=== PATIENT | female | born 1950 | race African-American/Black ===

== ENCOUNTER 2019-03-29 16:16 | Emergency (ER) | payer MEDICARE ==
[~2019-03-29] VITALS: Ht 160 cm; Wt 140.0 kg
[~2019-03-29 16:16] MED LIST: ATOR10TA MT; METO-539 MT
[2019-03-29] MEDS ORDERED: SODIUM CHLORIDE 0.9% 1,000 ML IV ONE (17:00)
[2019-03-29 17:58] LABS: BASOPHILS % 0.8 % (0.0-2.0); EOSINOPHILS % 0.8 % (0.0-5.0); HEMATOCRIT. 44.8 % (36.0-48.0); HEMOGLOBIN. 15.1 g/dL (12.0-16.0); LYMPHOCYTES % 21.3 % (20.0-50.0); MEAN CORPUSCULAR HEMOGLOBIN 28.3 pg (28.0-32.0); MEAN CORPUSCULAR VOLUME 84.3 fL (81.0-99.0); MEAN PLATELET VOLUME 7.9 fl (7.4-10.4); MONOCYTES % 6.9 % (2.0-8.0); NEUTROPHILS % 70.2 % (40.0-76.0); PLATELET 440 x1000/uL (130-400); RED BLOOD CELL COUNT 5.31 mill/uL (4.2-5.4)
[2019-03-29 18:00] LABS: CHLORIDE 113 mEq/L (98-107)
[2019-03-29 18:03] LABS: INR 0.9; PARTIAL THROMBOPLASTIN TIME 26.3 sec (23.4-31.0); PROTHROMBIN TIME 9.5 sec (9.6-11.0)
[2019-03-29 19:51] LABS: CLARITY URINE CLEAR (CLEAR); COLOR URINE PALE YELLOW (YELLOW); SPECIFIC GRAVITY URINE 1.007 (1.005-1.030)
[2019-03-29 19:52] LABS: KETONES URINE NEGATIVE (NEGATIVE); LEUKOCYTE ESTERASE URINE NEGATIVE (NEGATIVE); NITRITE URINE NEGATIVE (NEGATIVE); OCCULT BLOOD URINE NEGATIVE (NEGATIVE); PH URINE 5.5 (4.5-8.0); PROTEIN URINE NEGATIVE (NEGATIVE); UROBILINOGEN URINE 0.2 E.U./dL (0.2-1.0)
[2019-03-29] MEDS ORDERED: ASPIRIN 325MG EC TABLET PO ONE (20:00)
[2019-03-30 01:00] VITALS: BP 131/62
== END 2019-03-30 01:25 | disposition short-term general hospital (02) ==
LOC: ER 16:16
DX: R41.82 Altered mental status, unspecified (principal); R60.0 Localized edema; E78.00 Pure hypercholesterolemia, unspecified; I12.9 Hypertensive chronic kidney disease with stage 1 through stage 4 chronic kidney disease, or unspecified chronic kidney disease; N18.9 Chronic kidney disease, unspecified; Z86.73 Personal history of transient ischemic attack (TIA), and cerebral infarction without residual deficits; Z79.899 Other long term (current) drug therapy
CPT/HCPCS: 36415; 70450; 71045; 80053; 81003; 82962; 83880; 84484; 85025; 85610; 85730; 87086; 93005; 96360; 99285; J7030

== ENCOUNTER 2022-04-21 19:25 | Inpatient (IN) | payer OTHER, MEDICAID ==
[~2022-04-21] VITALS: Ht 162.6 cm; Wt 59.4 kg
[~2022-04-21 19:25] MED LIST changes: +ALBU90AE INH; +ASPI-1497 MT; -ATOR10TA MT; +CLOP-31 MT; +LEVE1000 MT; +LIP40 MT
[2022-04-21 20:45] LABS: BASOPHILS % 0.4 % (0.0-2.0); EOSINOPHILS % 0.1 % (0.0-5.0); HEMATOCRIT. 48.9 % (36.0-48.0); HEMOGLOBIN. 16.2 g/dL (12.0-16.0); LYMPHOCYTES % 12.1 % (20.0-50.0); MEAN CORPUSCULAR HEMOGLOBIN 27.6 pg (28.0-32.0); MEAN CORPUSCULAR VOLUME 83.1 fL (81.0-99.0); MEAN PLATELET VOLUME 7.9 fl (7.4-10.4); MONOCYTES % 4.9 % (2.0-8.0); NEUTROPHILS % 82.5 % (40.0-76.0); PLATELET 342 x1000/uL (130-400); RED BLOOD CELL COUNT 5.88 mill/uL (4.2-5.4); RED CELL DISTRIBUTION WIDTH 16.3 % (11.6-14.6)
[2022-04-21] MEDS ORDERED: MIDAZOLAM HCL 2 MG/2 ML VIAL IV NR (20:45)
[2022-04-21 20:52] LABS: CHLORIDE 107 mEq/L (98-107)
[2022-04-21 21:01] LABS: ETHANOL BLOOD < 10 mg/dL
[2022-04-21] MEDS ORDERED: MIDAZOLAM HCL 2 MG/2 ML VIAL IV ONE (21:30)
[2022-04-21] MEDS ORDERED: IOHEXOL-350 100 ML BOTTLE ONE (23:02)
[2022-04-21 23:23] LABS: CLARITY URINE CLEAR (CLEAR); COLOR URINE YELLOW (YELLOW); KETONES URINE TRACE (NEGATIVE); LEUKOCYTE ESTERASE URINE 2+ (NEGATIVE); NITRITE URINE POSITIVE (NEGATIVE); OCCULT BLOOD URINE 1+ (NEGATIVE); PROTEIN URINE 1+ (NEGATIVE); SPECIFIC GRAVITY URINE 1.053 (1.005-1.030); UROBILINOGEN URINE 0.2 E.U./dL (0.2-1.0)
[2022-04-21 23:40] LABS: *AMPHETAMINES SCREEN URINE NEGATIVE (NEGATIVE); *BARBITURATES SCREEN URINE NEGATIVE (NEGATIVE); *BENZODIAZEPINES SCREEN URINE PRESUMTIVE POSITIVE (NEGATIVE); *COCAINE SCREEN URINE NEGATIVE (NEGATIVE); CANNABINOID URINE SCREEN PRESUMTIVE POSITIVE (NEGATIVE); METHADONE URINE SCREEN NEGATIVE (NEGATIVE); OPIATES URINE SCREEN NEGATIVE (NEGATIVE); PHENCYCLIDINE URINE SCREEN NEGATIVE (NEGATIVE)
[2022-04-22] MEDS: CLONIDINE 0.1MG TABLET PO PRN (05:25)
[2022-04-22] MEDS ORDERED: DIPHENHYDRAMINE 50MG/ML VIAL IV PRN (09:45)
[2022-04-22] MEDS ORDERED: ONDANSETRON HCL 4MG/2ML INJ IV PRN (09:45)
[2022-04-22] MEDS ORDERED: IPRATROPIUM/ALBUTEROL 0.5-3(2.5)MG/3ML NEB HHN PRN (09:45)
[2022-04-22] MEDS ORDERED: ACETAMINOPHEN 325MG TABLET PO PRN (09:45)
[2022-04-22] MEDS: ENOXAPARIN 30MG/0.3ML SYR SUBCUT SCH (10:09)
[2022-04-22] MEDS: HYDRALAZINE 20MG/ML VIAL IV PRN (10:10)
[2022-04-22] MEDS ORDERED: MIDAZOLAM HCL 2 MG/2 ML VIAL IV NR (10:45)
[2022-04-22 12:30] VITALS: BP 142/80
[2022-04-22] MEDS ORDERED: CEFTRIAXONE 1,000 MG in DEXTROSE 5% WATER 50 ML IV SCH (15:00)
[2022-04-22 16:00] VITALS: BP 160/97
[2022-04-22] MEDS ORDERED: ALLO100T MT (16:49)
[2022-04-22] MEDS ORDERED: SODI650T PO (16:49)
[2022-04-22] MEDS ORDERED: COLC0.6C3 MT (16:49)
[2022-04-22] MEDS ORDERED: CALC0.253 MT (16:49)
[2022-04-22] MEDS ORDERED: LISI2.5T47 MT (16:49)
[2022-04-22] MEDS ORDERED: METO25TA6 MT (16:49)
[2022-04-22 20:00] VITALS: BP 159/95
[2022-04-23] VITALS: BP 148/90
[2022-04-23 04:00] VITALS: BP 127/89
[2022-04-23] MEDS: LEVETIRACETAM 500MG TABLET PO SCH ×3 (04:37→21:48)
[2022-04-23 08:00] VITALS: BP 179/99
[2022-04-23] MEDS ORDERED: DEXTROSE 50% WATER 50ML SYRINGE IV PRN (08:30)
[2022-04-23] MEDS ORDERED: LISINOPRIL 5MG TABLET PO SCH (09:00)
[2022-04-23] MEDS: ATORVASTATIN CALCIUM 40MG TABLET PO SCH (10:09)
[2022-04-23] MEDS: ASPIRIN 81MG EC TABLET PO SCH (10:09)
[2022-04-23] MEDS: CLOPIDOGREL 75MG TABLET PO SCH (10:09)
[2022-04-23] MEDS: COLCHICINE 0.6MG TABLET PO SCH (10:09)
[2022-04-23] MEDS: ALLOPURINOL 100 MG TABLET PO SCH (10:09)
[2022-04-23] MEDS: CALCITRIOL 0.25MCG CAPSULE PO SCH (10:09)
[2022-04-23] MEDS: ENOXAPARIN 30MG/0.3ML SYR SUBCUT SCH (10:10)
[2022-04-23] MEDS: DEXT 5%/0.45% NACL 1000ML 1,000 ML IV SCH (11:31)
[2022-04-23] MEDS: BLOOD SUGAR DIAGNOSTIC STRIP TEST SCH ×3 (11:40→21:46)
[2022-04-23] MEDS: INSULIN LISPRO 100 UNITS/ML SUBCUT SCH ×3 (12:10→21:00)
[2022-04-23 16:00] VITALS: BP 158/100
[2022-04-23] MEDS: CLONIDINE 0.1MG TABLET PO PRN (17:00)
[2022-04-23 20:00] VITALS: BP 121/98
[2022-04-24] VITALS (7 sets, daily range): BP systolic 133–173; BP diastolic 80–97
[2022-04-24] MEDS: DEXT 5%/0.45% NACL 1000ML 1,000 ML IV SCH ×2 (02:31→18:39)
[2022-04-24] MEDS: HYDRALAZINE 20MG/ML VIAL IV PRN (05:44)
[2022-04-24] MEDS: BLOOD SUGAR DIAGNOSTIC STRIP TEST SCH ×4 (06:40→21:54)
[2022-04-24 07:10] LABS: HEMATOCRIT. 47.9 % (36.0-48.0); HEMOGLOBIN. 15.4 g/dL (12.0-16.0); MEAN CORPUSCULAR HEMOGLOBIN 27.6 pg (28.0-32.0); MEAN CORPUSCULAR VOLUME 85.9 fL (81.0-99.0); MEAN PLATELET VOLUME 7.7 fl (7.4-10.4); PLATELET 225 x1000/uL (130-400); RED BLOOD CELL COUNT 5.57 mill/uL (4.2-5.4); RED CELL DISTRIBUTION WIDTH 16.8 % (11.6-14.6)
[2022-04-24] MEDS: INSULIN LISPRO 100 UNITS/ML SUBCUT SCH ×4 (07:10→21:00)
[2022-04-24 09:05] LABS: PHOSPHORUS 1.9 mg/dL (2.5-4.9)
[2022-04-24] MEDS: ASPIRIN 81MG EC TABLET PO SCH (09:43)
[2022-04-24] MEDS: CALCITRIOL 0.25MCG CAPSULE PO SCH (09:43)
[2022-04-24] MEDS: CLOPIDOGREL 75MG TABLET PO SCH (09:43)
[2022-04-24] MEDS: ALLOPURINOL 100 MG TABLET PO SCH (09:43)
[2022-04-24] MEDS: COLCHICINE 0.6MG TABLET PO SCH (09:43)
[2022-04-24] MEDS: ATORVASTATIN CALCIUM 40MG TABLET PO SCH (09:43)
[2022-04-24] MEDS: LEVETIRACETAM 500MG TABLET PO SCH ×2 (09:44→21:58)
[2022-04-24] MEDS ORDERED: SODIUM PHOS,M-BASIC-D-BASIC 20 MM in DEXT 5% WATER 243.3333 ML IV NR (12:00)
[2022-04-24] MEDS: ENOXAPARIN 30MG/0.3ML SYR SUBCUT SCH (12:09)
[2022-04-24] MEDS: CITRIC ACID/SODIUM CITRATE SOLN 30ML UDC PO SCH ×2 (12:09→18:39)
[2022-04-24 13:12] LABS: PLATELET ESTIMATE NORMAL
[2022-04-25] VITALS: BP 178/85
[2022-04-25] MEDS: HYDRALAZINE 20MG/ML VIAL IV PRN (01:59)
[2022-04-25 04:00] VITALS: BP 148/89
[2022-04-25] MEDS: BLOOD SUGAR DIAGNOSTIC STRIP TEST SCH ×4 (05:41→20:33)
[2022-04-25] MEDS: INSULIN LISPRO 100 UNITS/ML SUBCUT SCH ×4 (05:41→20:34)
[2022-04-25 08:00] VITALS: BP 160/80
[2022-04-25 08:02] LABS: BASOPHILS % 0.5 % (0.0-2.0); EOSINOPHILS % 0.2 % (0.0-5.0); HEMATOCRIT. 42.9 % (36.0-48.0); HEMOGLOBIN. 14.5 g/dL (12.0-16.0); MEAN CORPUSCULAR HEMOGLOBIN 27.5 pg (28.0-32.0); MEAN CORPUSCULAR VOLUME 81.4 fL (81.0-99.0); MEAN PLATELET VOLUME 7.9 fl (7.4-10.4); MONOCYTES % 14.1 % (2.0-8.0); NEUTROPHILS % 51.2 % (40.0-76.0); PLATELET 244 x1000/uL (130-400); RED BLOOD CELL COUNT 5.26 mill/uL (4.2-5.4); RED CELL DISTRIBUTION WIDTH 15.8 % (11.6-14.6)
[2022-04-25 08:37] LABS: PHOSPHORUS 2.1 mg/dL (2.5-4.9)
[2022-04-25] MEDS ORDERED: POTASSIUM CHLORIDE 20MEQ TABLET SR PO NR (09:00)
[2022-04-25] MEDS: CLOPIDOGREL 75MG TABLET PO SCH (09:58)
[2022-04-25] MEDS: COLCHICINE 0.6MG TABLET PO SCH (09:58)
[2022-04-25] MEDS: ASPIRIN 81MG EC TABLET PO SCH (09:58)
[2022-04-25] MEDS: ATORVASTATIN CALCIUM 40MG TABLET PO SCH (09:58)
[2022-04-25] MEDS: CALCITRIOL 0.25MCG CAPSULE PO SCH (09:58)
[2022-04-25] MEDS: ALLOPURINOL 100 MG TABLET PO SCH (09:58)
[2022-04-25] MEDS ORDERED: POTASSIUM PHOS,M-BASIC-D-BASIC 20 MMOL in DEXT 5% WATER 243.3333 ML IV NR (10:30)
[2022-04-25] MEDS: ENOXAPARIN 30MG/0.3ML SYR SUBCUT SCH (11:52)
[2022-04-25] MEDS: LEVETIRACETAM 500MG TABLET PO SCH ×2 (11:53→20:33)
[2022-04-25 12:00] VITALS: BP 160/90
[2022-04-25] MEDS: AMLODIPINE 5MG TABLET PO SCH (13:58)
[2022-04-25 16:00] VITALS: BP 128/83
[2022-04-25 20:25] VITALS: BP 184/89
[2022-04-25] MEDS: CLONIDINE 0.1MG TABLET PO PRN (20:33)
[2022-04-26] VITALS: BP 155/89
[2022-04-26 04:00] VITALS: BP 158/88
[2022-04-26] MEDS: INSULIN LISPRO 100 UNITS/ML SUBCUT SCH ×4 (06:16→21:00)
[2022-04-26] MEDS: BLOOD SUGAR DIAGNOSTIC STRIP TEST SCH ×4 (06:16→21:06)
[2022-04-26 07:19] LABS: BASOPHILS % 0.6 % (0.0-2.0); EOSINOPHILS % 0.2 % (0.0-5.0); HEMATOCRIT. 44.1 % (36.0-48.0); HEMOGLOBIN. 14.8 g/dL (12.0-16.0); LYMPHOCYTES % 30.1 % (20.0-50.0); MEAN CORPUSCULAR HEMOGLOBIN 27.4 pg (28.0-32.0); MEAN CORPUSCULAR VOLUME 81.6 fL (81.0-99.0); MEAN PLATELET VOLUME 8.3 fl (7.4-10.4); MONOCYTES % 12.4 % (2.0-8.0); NEUTROPHILS % 56.7 % (40.0-76.0); PLATELET 249 x1000/uL (130-400); RED CELL DISTRIBUTION WIDTH 15.9 % (11.6-14.6)
[2022-04-26 07:36] LABS: PHOSPHORUS 2.4 mg/dL (2.5-4.9)
[2022-04-26 08:00] VITALS: BP 146/75
[2022-04-26] MEDS: ENOXAPARIN 30MG/0.3ML SYR SUBCUT SCH (09:08)
[2022-04-26] MEDS: CALCITRIOL 0.25MCG CAPSULE PO SCH (09:08)
[2022-04-26] MEDS: ATORVASTATIN CALCIUM 40MG TABLET PO SCH (09:10)
[2022-04-26] MEDS: AMLODIPINE 5MG TABLET PO SCH ×2 (09:10→18:07)
[2022-04-26] MEDS: COLCHICINE 0.6MG TABLET PO SCH (09:10)
[2022-04-26] MEDS: ASPIRIN 81MG EC TABLET PO SCH (09:11)
[2022-04-26] MEDS: CLOPIDOGREL 75MG TABLET PO SCH (09:11)
[2022-04-26] MEDS: ALLOPURINOL 100 MG TABLET PO SCH (09:11)
[2022-04-26] MEDS: LEVETIRACETAM 500MG TABLET PO SCH ×2 (09:13→21:06)
[2022-04-26] MEDS ORDERED: SODIUM PHOS,M-BASIC-D-BASIC 20 MM in DEXT 5% WATER 243.3333 ML IV NR (11:30)
[2022-04-26 12:00] VITALS: BP 142/83
[2022-04-26] MEDS ORDERED: LOPERAMIDE HCL 2MG CAPSULE PO SCH (14:00)
[2022-04-26 16:00] VITALS: BP 131/78
[2022-04-26 20:00] VITALS: BP 148/90
[2022-04-27] VITALS: BP 149/89
[2022-04-27 04:00] VITALS: BP 147/86
[2022-04-27] MEDS: BLOOD SUGAR DIAGNOSTIC STRIP TEST SCH ×3 (06:33→16:31)
[2022-04-27] MEDS: INSULIN LISPRO 100 UNITS/ML SUBCUT SCH ×3 (06:33→16:31)
[2022-04-27 08:00] VITALS: BP 129/83
[2022-04-27] MEDS: LEVETIRACETAM 500MG TABLET PO SCH (08:31)
[2022-04-27] MEDS: ALLOPURINOL 100 MG TABLET PO SCH (08:31)
[2022-04-27] MEDS: ENOXAPARIN 30MG/0.3ML SYR SUBCUT SCH (08:31)
[2022-04-27] MEDS: ATORVASTATIN CALCIUM 40MG TABLET PO SCH (08:31)
[2022-04-27] MEDS: ASPIRIN 81MG EC TABLET PO SCH (08:31)
[2022-04-27] MEDS: CLOPIDOGREL 75MG TABLET PO SCH (08:31)
[2022-04-27] MEDS: COLCHICINE 0.6MG TABLET PO SCH (08:31)
[2022-04-27] MEDS: AMLODIPINE 5MG TABLET PO SCH (08:32)
[2022-04-27] MEDS: CALCITRIOL 0.25MCG CAPSULE PO SCH (08:32)
[2022-04-27] MEDS ORDERED: AMLO5TAB88 PO (10:53)
[2022-04-27 10:56] VITALS: BP 129/83
[2022-04-27 12:00] VITALS: BP 99/76
[2022-04-27 16:00] VITALS: BP 144/79
== END 2022-04-27 17:05 | disposition home or self-care (01) | DRG 100 ==
LOC: ER 19:25 → 7EST 22:21 → ENRESERV 04-22 07:53 → CANRESERV 04-22 07:53 → EDBEDREQSVC 04-22 11:24 → 7EST 04-22 12:39
PROVIDERS: ADMIT Internal Medicine; ATTEND Internal Medicine
DX: G40.909 Epilepsy, unspecified, not intractable, without status epilepticus (principal); U07.1 COVID-19; G45.9 Transient cerebral ischemic attack, unspecified; N17.9 Acute kidney failure, unspecified; N39.0 Urinary tract infection, site not specified; I16.0 Hypertensive urgency; I12.9 Hypertensive chronic kidney disease with stage 1 through stage 4 chronic kidney disease, or unspecified chronic kidney disease; N18.9 Chronic kidney disease, unspecified; E78.00 Pure hypercholesterolemia, unspecified; G93.89 Other specified disorders of brain; Z79.899 Other long term (current) drug therapy; Z82.49 Family history of ischemic heart disease and other diseases of the circulatory system; Z79.82 Long term (current) use of aspirin; I69.328 Other speech and language deficits following cerebral infarction
CPT/HCPCS: 36415; 70496; 70498; 70551; 71045; 76770; 80048; 80053; 80061; 80305; 80320; 81003; 82962; 83036; 83735; 84100; 84484; 85025; 87426; 93005; 93970; 97116; 97162; 99285; C1893; C9803; J0360; J0696; J1650; J2250; J3490; J7060; Q9967; G0480